=== PATIENT | male | born 1975 | race American Indian/Alaskan Native ===

== ENCOUNTER 2020-12-18 14:01 | Emergency (ER) | payer MEDICARE ==
[2020-12-18 14:30] VITALS: BP 133/76
[2020-12-18 16:30] LABS: Hematocrit 43.6 % (35.5-45.6); Hemoglobin 14.7 gm/dl (11.8-15.2); Mean Corpuscular HGB Conc 34 % (32-34); Mean Corpuscular Volume 94 fl (84-94); Platelet Count 170 K/mm3 (140-440); Red Blood Count 4.63 M/mm3 (3.65-5.03); Red Cell Distribution Width 15.2 % (13.2-15.2)
[2020-12-18 16:51] LABS: Alanine Aminotransferase 42 units/L (7-56); Albumin 4.3 g/dL (3.9-5); Blood Urea Nitrogen 15 mg/dL (9-20); Calcium 8.5 mg/dL (8.4-10.2); Hemolysis Index 15
[2020-12-18 16:58] LABS: BUN/Creatinine Ratio 21
[2020-12-18 18:06] LABS: Bilirubin,Urine NEG (Negative); Blood,Urine NEG (Negative); Color,Urine Yellow (Yellow); Mucus,Urine 3+ /HPF
[2020-12-18 18:07] LABS: Amphetamine Screen,Urine Negative; Benzodiazepines Screen,Urine Negative; Methadone Screen,Urine Negative; Opiate Screen,Urine Negative
[2020-12-18 18:24] LABS: Cannabinoid Screen,Urine Positive; Cocaine Screen,Urine Positive
[2020-12-18 18:41] LABS: Platelet Estimate Consistent w Auto; RBC Morphology Normal; Total Cells Counted 100
--- NOTE | 2020-12-18 18:43 | Emergency Department Report ---
ED Medical Clearance HPI - General Chief complaint: Medical Clearance Stated complaint: DRUG USE MED EVAL FOR TREATMENT Time Seen by Provider: 12/18/20 14:39 Source: patient Mode of arrival: Ambulatory - History of Present Illness Initial comments: The patient was evaluated in the emergency department for symptoms described in the history of present illness. He/she was evaluated in the context of the global COVID-19 pandemic, which necessitated consideration that the patient might be at risk for infection with the virus that causes COVID-19. Institutional protocols and algorithms that pertain to the evaluation of patients at risk for COVID-19 are in a state of rapid change based on information released by regulatory bodies including the CDC and federal and state organizations. These policies and algorithms were followed during the patient's care in the emergency department. Please note that these policies, procedures and recommendations changed on a rapid basis. 45-year-old -[place] male with a current history of hypertension and drug abuse. Patient presents wanting medical clearance to be able to to be eligible for a drug rehab program. Patient states his drug of choice is heroin cocaine and THC. Patient denies any suicidal homicidal ideation. Patient denies any pain at this time. MD Complaint: medical clearance request Reason for Medical Clearance: medical condition (Drug abuse) Alledged Intoxication: No Compliant with Home Medications: Yes Associated Symptoms: denies: chest pain, shortness of breath, palpitations, cough, fever/chills Treatments Prior to Arrival: none Allergies/Adverse reactions: Allergies Allergy/AdvReac Type Severity Reaction Status Date / Time No Known Allergies Allergy Verified 12/18/20 14:30 ED Review of Systems ROS: Stated complaint: DRUG USE MED EVAL FOR TREATMENT Other details as noted in HPI Comment: All other systems reviewed and negative Constitutional: denies: chills, fever Eyes: denies: eye pain, eye discharge, vision change ENT: denies: ear pain, throat pain Respiratory: denies: cough, shortness of breath, wheezing ED Past Medical Hx - Past Medical History Previous Medical History?: Yes Hx Hypertension: Yes ED Physical Exam - General Limitations: No Limitations General appearance: alert, in no apparent distress - Head Head exam: Present: atraumatic, normocephalic - Eye Eye exam: Present: normal appearance - ENT ENT exam: Present: normal external ear exam - Neck Neck exam: Present: normal inspection, full ROM - Respiratory Respiratory exam: Absent: accessory muscle use - Cardiovascular Cardiovascular Exam: Present: regular rate - Extremities Exam Extremities exam: Present: normal inspection, full ROM - Back Exam Back exam: Present: normal inspection - Neurological Exam Neurological exam: Present: alert, oriented X3, normal gait - Psychiatric Psychiatric exam: Present: normal affect, normal mood - Skin Skin exam: Present: warm, dry, intact, normal color. Absent: rash ED Course Vital Signs 12/18/20 14:28 Temperature 98.6 F Pulse Rate 76 Respiratory 20 Rate Blood Pressure 133/76 O2 Sat by Pulse 96 Oximetry ED Medical Decision Making - Lab Data Result diagrams: 12/18/20 16:03 12/18/20 16:03 - Medical Decision Making 45-year-old -[place] male with a current history of hypertension and drug abuse. Patient presents wanting medical clearance to be able to to be eligible for a drug rehab program. Patient states his drug of choice is heroin cocaine and THC. Patient denies any suicidal homicidal ideation. Patient denies any pain at this time. Patient's labs are stable. UDS positive for cocaine and marijuana negative for opiates. Discussed with patient will refer him to a drug rehab handout given to patient. Encourage patient to continue with his blood pressure medication referral to [place] for chronic disease management follow-up. ED Disposition Clinical Impression: Drug addiction Disposition: HOME / SELF CARE / HOMELESS Is pt being admited?: No Does the pt Need Aspirin: No Condition: Stable Additional Instructions: Patient is medically cleared to follow-up outpatient drug rehab. Patient is encouraged to continue with his hypertensive medicine. Patient is given handout for outpatient drug rehab centers. Referrals: PRIMARY MD DELIA [Primary Care Provider] - 3-5 Days [facility] [Provider Group] - 3-5 Days
--- NOTE | 2020-12-18 18:49 | Emergency Department Report ---
ED Medical Clearance HPI - General Chief complaint: Medical Clearance Stated complaint: DRUG USE MED EVAL FOR TREATMENT Time Seen by Provider: 12/18/20 14:39 Source: patient Mode of arrival: Ambulatory Allergies/Adverse reactions: Allergies Allergy/AdvReac Type Severity Reaction Status Date / Time No Known Allergies Allergy Verified 12/18/20 14:30 ED Review of Systems ROS: Stated complaint: DRUG USE MED EVAL FOR TREATMENT Other details as noted in HPI ED Past Medical Hx - Past Medical History Previous Medical History?: Yes Hx Hypertension: Yes ED Physical Exam - General Limitations: No Limitations ED Course Vital Signs 12/18/20 14:28 Temperature 98.6 F Pulse Rate 76 Respiratory 20 Rate Blood Pressure 133/76 O2 Sat by Pulse 96 Oximetry ED Medical Decision Making - Lab Data Result diagrams: 12/18/20 16:03 12/18/20 16:03 ED Disposition Clinical Impression: Drug addiction HTN (hypertension) Qualifiers: Hypertension type: unspecified Qualified Code(s): I10 - Essential (primary) hypertension Disposition: 01 HOME / SELF CARE / HOMELESS Is pt being admited?: No Does the pt Need Aspirin: No Condition: Stable Instructions: Hypertension (ED), Finding Treatment for Addiction Referrals: PRIMARY MD DELIA [Primary Care Provider] - 3-5 Days [facility] [Provider Group] - 3-5 Days
== END 2020-12-18 18:55 | disposition home or self-care (01) ==
LOC: ED 14:01
DX: F19.20 Other psychoactive substance dependence, uncomplicated (principal); F14.20 Cocaine dependence, uncomplicated; F11.20 Opioid dependence, uncomplicated
CPT/HCPCS: 36415; 80053; 80307; 80320; 81001; 85007; 85025; 99283; G0480